=== PATIENT | female | born 1950 | race African-American/Black ===

== ENCOUNTER 2017-04-21 17:29 | Emergency (ER) | payer OTHER ==
[2017-04-21 17:49] VITALS: TEMP 97.4; BMI 37.8
[2017-04-21] MEDS ORDERED: ONDANSETRON 4 MG/2 ML VIAL IVPUSH ONE (19:02)
[2017-04-21] MEDS ORDERED: SODIUM CHLORIDE 0.9% 1000 ML INFUS.BAG IV ONE (19:02)
[2017-04-21] MEDS ORDERED: ONDANSETRON 4 MG/2 ML VIAL ONE (19:08)
[2017-04-21] MEDS ORDERED: morphine CARPU-JECT 4 MG/1 ML DISP.SYRIN IVPUSH ONE (19:21)
[2017-04-21 20:33] LABS: BASOPHIL 0.7 % (0-2.0); EOSINOPHIL 0.3 % (0-4.5); MCH 24.9 pg (25.7-33.7); MCHC 30.9 g/dl (32.0-36.0); MEAN CELL VOLUME 80.8 fl (80-96); MEAN PLT VOLUME 7.6 fl (7.5-11.1); PLATELET COUNT 495 K/MM3 (134-434); RDW 14.9 % (11.6-15.6); WHITE BLOOD COUNT 11.5 K/mm3 (4.0-10.0)
[2017-04-21] MEDS ORDERED: morphine CARPU-JECT 4 MG/1 ML DISP.SYRIN ONE (20:42)
--- NOTE | 2017-04-21 20:43 | PDOC ---
History of Present Illness - General History Source: Patient Exam Limitations: No Limitations - History of Present Illness Initial Comments: The patient is a 66 yo F with a past medical history significant for asthma, HTN , HLD, DM who speaks creole who presents with nausea, vomiting, indigestion, gas and acid reflux since last night. The patient also endorses RUQ pain. She states her last BM was 6 days ago. The patient states that every time she eats she throws up. The patient states she is unsure of her last colonoscopy. She notes its not normal to have 1 week between her BMs. The patient denies fevers , chills, and diarrhea. The patient states she was unable to sleep last night secondary to the pain. The patient denies dysuria, hematuria, urgency and frequency. The patient states she takes stool softening medication and medication for acid reflux. PCP: Dr. Valadez (non affiliate) <Irais Real - Last Filed: 04/22/17 00:39> <Manisha Crawford - Last Filed: 04/22/17 03:34> - General Chief Complaint: Pain Stated Complaint: PAIN Time Seen by Provider: 04/21/17 18:02 Past History <Irais Real - Last Filed: 04/22/17 00:39> - Past Medical History Anemia: Yes Diabetes: Yes HTN: Yes - Psycho/Social/Smoking Cessation Hx Anxiety: No Suicidal Ideation: No Smoking History: Unknown if ever smoked Have you smoked in the past 12 months: No Information on smoking cessation initiated: No Hx Alcohol Use: No Drug/Substance Use Hx: No Substance Use Type: None <Manisha Crawford - Last Filed: 04/22/17 03:34> - Past Medical History Allergies/Adverse Reactions: Allergies Allergy/AdvReac Type Severity Reaction Status Date / Time No Known Allergies Allergy Verified 04/21/17 19:02 Review of Systems - Review of Systems Able to Perform ROS?: Yes Comments:: GENERAL/CONSTITUTIONAL: No fever or chills. No weakness. HEAD, EYES, EARS, NOSE AND THROAT: No change in vision. No ear pain or discharge. No sore throat. CARDIOVASCULAR: No chest pain or shortness of breath. RESPIRATORY: No cough, wheezing, or hemoptysis. GASTROINTESTINAL: + nausea, vomiting, indigestion, gas and acid reflux No diarrhea. GENITOURINARY: No dysuria, frequency, or change in urination. MUSCULOSKELETAL: No joint or muscle swelling or pain. No neck or back pain. SKIN: No rash NEUROLOGIC: No headache, vertigo, loss of consciousness, or change in strength/ sensation. ENDOCRINE: No increased thirst. No abnormal weight change. HEMATOLOGIC/LYMPHATIC: No anemia, easy bleeding, or history of blood clots. ALLERGIC/IMMUNOLOGIC: No hives or skin allergy. <Irais Real - Last Filed: 04/22/17 00:39> *Physical Exam - Vital Signs Last Vital Signs Temp Pulse Resp BP Pulse Ox 97.4 F L 106 H 18 116/86 100 04/21/17 17:46 04/21/17 17:46 04/21/17 17:46 04/21/17 17:46 04/21/17 17:46 - Physical Exam Comments: GENERAL: Awake, alert, and fully oriented, in no acute distress. Well appearing. HEAD: No signs of trauma EYES: PERRLA, EOMI, sclera anicteric, conjunctiva clear ENT: Auricles normal inspection, hearing grossly normal, nares patent, oropharynx clear without exudates. Moist mucosa NECK: Normal ROM, supple, no lymphadenopathy, JVD, or masses LUNGS: Breath sounds equal, clear to auscultation bilaterally. No wheezes, and no crackles HEART: Regular rate and rhythm, normal S1 and S2, no murmurs, rubs or gallops ABDOMEN: Soft, obese, diffusely tender mostly in the RUQ, normoactive bowel sounds. No guarding, no rebound. No masses EXTREMITIES: Normal range of motion, no edema. No clubbing or cyanosis. No cords, erythema, or tenderness NEUROLOGICAL: Cranial nerves II through XII grossly intact. Normal speech, gait not assessed. SKIN: Warm, Dry, normal turgor, no rashes or lesions noted. <Irais Real - Last Filed: 04/22/17 00:39> - Vital Signs Last Vital Signs Temp Pulse Resp BP Pulse Ox 97.4 F L 106 H 18 116/86 100 04/21/17 17:46 04/21/17 17:46 04/21/17 17:46 04/21/17 17:46 04/21/17 17:46 <Manisha Crawford - Last Filed: 04/22/17 03:34> Heart Score/ECG Review #1 Sinus Tach rate of 103 bpm. Normal access and normal intervals. T wave inversion in AVL. No ST elevations. <Irais Real - Last Filed: 04/22/17 00:39> #2 ECG reviewed & interpreted by me at: 01:00 <Manisha Crawford - Last Filed: 04/22/17 03:34> ED Treatment Course - LABORATORY CBC & Chemistry Diagram: 04/21/17 20:10 04/21/17 20:10 - ADDITIONAL ORDERS Additional order review: 04/21/17 20:10 RBC 3.61 MCV 80.8 MCHC 30.9 L RDW 14.9 MPV 7.6 Neutrophils % 73.0 Lymphocytes % 18.0 Monocytes % 8.0 Eosinophils % 0.3 Basophils % 0.7 - RADIOLOGY Radiograph Interpretation: CT Abdomen and Pelvis FINDINGS: Heart is mildly enlarged visualized cardiac chambers are normal size and configuration. Normal liver, gallbladder, pancreas, spleen, adrenal glands and kidneys. A small hiatal hernia is noted. There is mild duodenal inflammation secondary to peptic ulcer disease. No abscess or free air. No colonic inflammation. There is no aortic aneurysm. There is no significant retroperitoneal lymphadenopathy. The pelvic small and large bowel are normal. Appendix is normal. The uterus and adnexal structures are normal. Urinary bladder is unremarkable. There is no pelvic free fluid. No discrete pelvic lymphadenopathy is identified. IMPRESSION: Duodenitis may be secondary to peptic ulcer disease. <Irais Real - Last Filed: 04/22/17 00:39> - LABORATORY CBC & Chemistry Diagram: 04/21/17 20:10 04/21/17 20:10 - ADDITIONAL ORDERS Additional order review: 04/21/17 20:10 RBC 3.61 MCV 80.8 MCHC 30.9 L RDW 14.9 MPV 7.6 Neutrophils % 73.0 Lymphocytes % 18.0 Monocytes % 8.0 Eosinophils % 0.3 Basophils % 0.7 <Manisha Crawford - Last Filed: 04/22/17 03:34> Medical Decision Making - Medical Decision Making 04/22/17 00:15 66yo F hx asthma, HTN, HLD, DM p/w nausea, vomiting, and diffuse abd pain, worst in the RUQ. She states her last BM was 6 days ago, however she reports chronic constipation. Differential is wide and includes cholecystitis vs cholelithiasis vs gastritis vs GERD given pain is worse in the upper quadrants. Will start with labs, RUQ US, and pain medication and reassess need for further imaging such at CTAP to evaluate for other intrabdominal pathology Laboratory Results - last 24 hr 04/21/17 04/21/17 04/21/17 19:05 20:00 20:10 WBC 11.5 H RBC 3.61 Hgb 9.0 L Hct 29.2 L MCV 80.8 MCH 24.9 L MCHC 30.9 L RDW 14.9 Plt Count 495 H MPV 7.6 Neutrophils % 73.0 Lymphocytes % 18.0 Monocytes % 8.0 Eosinophils % 0.3 Basophils % 0.7 Sodium Potassium Chloride Carbon Dioxide Anion Gap BUN Creatinine Creat Clearance w eGFR Random Glucose Lactic Acid 2.3 H* Calcium Total Bilirubin AST ALT Alkaline Phosphatase Creatine Kinase Troponin I Total Protein Albumin Lipase Urine Color Straw Urine Appearance Clear Urine pH 7.0 Urine Protein Negative Urine Glucose (UA) 3+ H Urine Ketones Negative Urine Blood Negative Urine Nitrite Negative Urine Bilirubin Negative Urine Urobilinogen Negative Ur Leukocyte Esterase Negative 04/21/17 04/21/17 20:10 20:10 WBC RBC Hgb Hct MCV MCH MCHC RDW Plt Count MPV Neutrophils % Lymphocytes % Monocytes % Eosinophils % Basophils % Sodium 131 L Potassium 4.0 Chloride 96 L Carbon Dioxide 27 Anion Gap 8 BUN 10 Creatinine 1.0 Creat Clearance w eGFR 55.82 Random Glucose 367 H* Lactic Acid Calcium 11.0 H Total Bilirubin 0.3 AST 22 ALT 21 Alkaline Phosphatase 160 H Creatine Kinase 84 Troponin I < 0.02 Total Protein 8.5 H Albumin 3.7 Lipase 159 Urine Color Urine Appearance Urine pH Urine Protein Urine Glucose (UA) Urine Ketones Urine Blood Urine Nitrite Urine Bilirubin Urine Urobilinogen Ur Leukocyte Esterase 04/22/17 00:20 US unremarkable. UA unremarkable. Labs with mild leukocytosis to 11.5, lactate mildly elevated to 2.4. Troponin is negative. On serial abd exams, pt continues to be diffusely tender, CTAP ordered. 04/22/17 03:25 CTAP with possible duodenitis, no other acute pathology. Pt ordered for GI cocktail and given food for PO challenge. Repeat EKG stable compared to first EKG, (NSR, rate 91, normal axis and intervals, stable TWI in avL, no DOLLY. Repeat trop and lactate ordered. If rpt trop/lactate wnl, and pt tolerates PO, pt can be DC to follow up with PMD within 1-2 days. 04/22/17 03:30 <Manisha Crawford - Last Filed: 04/22/17 03:34> *DC/Admit/Observation/Transfer - Attestations Scribe Attestion: Documentation prepared by Irais Real, acting as medical center manager for Manisha Crawford MD, /DO. <Irais Real - Last Filed: 04/22/17 00:39> <Manisha Crawford - Last Filed: 04/22/17 03:34> Diagnosis at time of Disposition: Abdominal pain Qualifiers: Abdominal location: unspecified location Qualified Code(s): R10.9 - Unspecified abdominal pain - Referrals Referrals: Arsenio Genao [Primary Care Provider] -
[2017-04-21 21:10] LABS: ALBUMIN 3.7 g/dl (3.4-5.0); ANION GAP 8 (8-16); BILIRUBIN,TOTAL 0.3 mg/dL (0.2-1.0); CO2 27 mmol/L (21-32); SGPT/ALT 21 U/L (12-78); TOT PROT 8.5 g/dl (6.4-8.2)
[2017-04-21 21:11] LABS: ALK PHOS 160 U/L (45-117); CPK 84 IU/L (26-192); TROPONIN I < 0.02 ng/ml (0.00-0.05)
[2017-04-21 21:17] LABS: SGOT/AST 22 U/L (15-37)
[2017-04-21 21:22] LABS: GLUCOSE,RANDOM 367 mg/dL (74-106)
[2017-04-22] MEDS ORDERED: PANTOPRAZOLE SODIUM 40 MG in SODIUM CHLORIDE 100 ML IVPB ONE (00:41)
[2017-04-22] MEDS ORDERED: ONDANSETRON 4 MG/2 ML VIAL IVPB ONE (00:41)
[2017-04-22] MEDS ORDERED: FAMOTIDINE 20 MG/50 ML IVPB 50 ML IVPB ONE ×2 (00:41→02:14)
[2017-04-22] MEDS ORDERED: PANTOPRAZOLE SODIUM 100 ML IVPB ONE (02:14)
[2017-04-22] MEDS ORDERED: ONDANSETRON 4 MG/2 ML VIAL ONE (02:14)
[2017-04-22 02:25] LABS: URINE APPEARANCE CLEAR; URINE BILIRUBIN NEGATIVE (NEGATIVE); URINE BLOOD NEGATIVE (NEGATIVE); URINE COLOR STRAW; URINE GLUCOSE (UA) 3+ (NEGATIVE); URINE KETONE NEGATIVE (NEGATIVE); URINE LEUK ESTERASE NEGATIVE (NEGATIVE); URINE NITRITE NEGATIVE (NEGATIVE); URINE PROTEIN NEGATIVE (NEGATIVE); URINE UROBILINOGEN NEGATIVE mg/dL (0.2-1.0)
--- NOTE | 2017-04-22 05:11 | PDOC ---
*Physical Exam - Vital Signs Last Vital Signs Temp Pulse Resp BP Pulse Ox 97.4 F L 106 H 18 116/86 100 04/21/17 17:46 04/21/17 17:46 04/21/17 17:46 04/21/17 17:46 04/21/17 17:46 ED Treatment Course - LABORATORY CBC & Chemistry Diagram: 04/21/17 20:10 04/21/17 20:10 - ADDITIONAL ORDERS Additional order review: Laboratory Results 04/22/17 04/22/17 04/21/17 03:07 03:07 20:10 Sodium Potassium Chloride Carbon Dioxide Anion Gap BUN Creatinine Creat Clearance w eGFR Random Glucose Lactic Acid 1.1 Calcium Total Bilirubin AST ALT Alkaline Phosphatase Creatine Kinase 84 Troponin I < 0.02 < 0.02 Total Protein Albumin Lipase Urine Color Urine Appearance Urine pH Urine Protein Urine Glucose (UA) Urine Ketones Urine Blood Urine Nitrite Urine Bilirubin Urine Urobilinogen Ur Leukocyte Esterase 04/21/17 04/21/17 04/21/17 20:10 20:00 19:05 Sodium 131 L Potassium 4.0 Chloride 96 L Carbon Dioxide 27 Anion Gap 8 BUN 10 Creatinine 1.0 Creat Clearance w eGFR 55.82 Random Glucose 367 H* Lactic Acid 2.3 H* Calcium 11.0 H Total Bilirubin 0.3 AST 22 ALT 21 Alkaline Phosphatase 160 H Creatine Kinase Troponin I Total Protein 8.5 H Albumin 3.7 Lipase 159 Urine Color Straw Urine Appearance Clear Urine pH 7.0 Urine Protein Negative Urine Glucose (UA) 3+ H Urine Ketones Negative Urine Blood Negative Urine Nitrite Negative Urine Bilirubin Negative Urine Urobilinogen Negative Ur Leukocyte Esterase Negative 04/21/17 20:10 RBC 3.61 MCV 80.8 MCHC 30.9 L RDW 14.9 MPV 7.6 Neutrophils % 73.0 Lymphocytes % 18.0 Monocytes % 8.0 Eosinophils % 0.3 Basophils % 0.7 - Medications Given in the ED: ED Medications Discontinued Medications Generic Name Dose Route Start Last Admin Trade Name Freq PRN Reason Stop Dose Admin Pantoprazole Sodium 40 mg/ 100 mls @ 200 mls/hr 04/22/17 00:41 04/22/17 02:19 Sodium Chloride IVPB 04/22/17 01:10 200 mls/hr ONCE ONE Administration Famotidine/Sodium Chloride 50 mls @ 100 mls/hr 04/22/17 00:41 04/22/17 02:19 Pepcid 20 Mg Premixed Ivpb - IVPB 04/22/17 01:10 100 mls/hr ONCE ONE Administration Morphine Sulfate 2 mg 04/21/17 19:21 04/21/17 20:47 Morphine Injection - IVPUSH 04/21/17 19:22 2 mg ONCE ONE Administration Ondansetron HCl 4 mg 04/21/17 19:02 04/21/17 20:41 Zofran Injection IVPUSH 04/21/17 19:03 4 mg ONCE ONE Administration Ondansetron HCl 4 mg 04/22/17 00:41 04/22/17 02:19 Zofran Injection IVPB 04/22/17 00:42 4 mg ONCE ONE Administration Sodium Chloride 1,000 ml 04/21/17 19:02 04/21/17 20:46 Normal Saline - IV 04/21/17 19:03 1,000 ml ONCE ONE Administration Medical Decision Making - Medical Decision Making 04/22/17 05:10 Repeat Lactate and Troponin are negative Will DC Home *DC/Admit/Observation/Transfer Diagnosis at time of Disposition: Acute duodenitis Abdominal pain Qualifiers: Abdominal location: unspecified location Qualified Code(s): R10.9 - Unspecified abdominal pain - Discharge Dispostion Disposition: HOME Condition at time of disposition: Improved Admit: No - Prescriptions Prescriptions: Pantoprazole Sodium [Protonix -] 40 mg PO BID #14 tablet.ec - Referrals Referrals: Arsenio Genao [Primary Care Provider] - - Patient Instructions Printed Discharge Instructions: DI for Duodenitis Additional Instructions: Return to us if worse. See your doctor on tuesday. Serg- Dr. Petros Phillips - Post Discharge Activity
[2017-04-22 05:30] VITALS: BP 116/76; PULSE 80
--- NOTE | 2017-04-22 10:06 | EKG ---
Test Reason : Blood Pressure : / mmHG Vent. Rate : 091 BPM Atrial Rate : 091 BPM P-R Int : 154 ms QRS Dur : 082 ms QT Int : 364 ms P-R-T Axes : 061 -06 059 degrees QTc Int : 447 ms NORMAL SINUS RHYTHM MINIMAL VOLTAGE CRITERIA FOR LVH, MAY BE NORMAL VARIANT WHEN COMPARED WITH ECG OF 21-APR-2017 17:49, NO SIGNIFICANT CHANGE WAS FOUND Confirmed by YOLANDA PAREKH MD ([id number]) on 04/22/2017 10:05:56 AM Referred By: Confirmed By:YOLANDA PAREKH MD
--- NOTE | 2017-04-22 10:24 | EKG ---
Test Reason : Blood Pressure : / mmHG Vent. Rate : 103 BPM Atrial Rate : 103 BPM P-R Int : 146 ms QRS Dur : 078 ms QT Int : 334 ms P-R-T Axes : 065 -12 069 degrees QTc Int : 437 ms SINUS TACHYCARDIA MINIMAL VOLTAGE CRITERIA FOR LVH, MAY BE NORMAL VARIANT NO PREVIOUS ECGS AVAILABLE Confirmed by YOLANDA PAREKH MD ([id number]) on 04/22/2017 10:24:33 AM Referred By: Confirmed By:YOLANDA PAREKH MD
== END 2017-04-22 05:30 | disposition home or self-care (01) ==
LOC: JER 17:29
PROC: 3E033GC Introduction of Other Therapeutic Substance into Peripheral Vein, Percutaneous Approach (ICD-10-PCS; principal; 2017-04-21)
PROC: 3E033NZ Introduction of Analgesics, Hypnotics, Sedatives into Peripheral Vein, Percutaneous Approach (ICD-10-PCS; 2017-04-21)
DX: K29.80 Duodenitis without bleeding (principal); R10.9 Unspecified abdominal pain; I10 Essential (primary) hypertension; E78.5 Hyperlipidemia, unspecified; E11.9 Type 2 diabetes mellitus without complications; J45.909 Unspecified asthma, uncomplicated; D64.9 Anemia, unspecified
CPT/HCPCS: 36415; 74020-TC; 74177-TC; 76705-TC; 80053; 81003; 83605; 83690; 84484; 85025; 93005; 93010; 99282-25